=== PATIENT | female | born 1965 | race Caucasian/White ===

== ENCOUNTER → 2017-02-23 | Outpatient (CLI) | payer BC ==
[2015-08-27 17:39] VITALS: BP 105/65
[~2017-02-23] MED LIST: ALPR0.254 PO; CITA10TA8 PO; CYCL10TA2 PO; HYDR-2165 PO; HYDR-2666 PO; LACT10SO26 PO; OMEP40CA2 PO; OXYC-323 PO
--- NOTE | 2017-02-23 11:31 | KCIC ---
MRI brain without contrast Indication: Chronic migraine headaches. Multiplanar multi sequence imaging of the brain was performed without contrast. No prior studies are available for comparison. The ventricles and sulci are within normal limits. No sulcal effacement or midline shift is identified. The normal expected flow voids within the carotid siphons are seen. There is no diffusion restriction identified. Occasional subcortical T2 signal is seen, nonspecific but likely on the basis of chronic microvascular ischemia. No acute intra-axial or extra-axial hemorrhage is detected. The corpus callosum is unremarkable. The sella and parasellar structures are unremarkable. Impression: Minimal subcortical white matter signal abnormality is noted, likely on the basis of chronic microvascular ischemia. The study is otherwise unremarkable. No acute feature is detected. Electronically signed by: Mike Adam MD (Feb 23, 2017 11:29:17)
--- NOTE | 2017-02-23 11:33 | KCIC ---
Cervical spine, three views Indication: Neck pain. Time of exam 11:08 a.m. There is straightening of the normal cervical lordotic curvature. Minimal anterolisthesis of C4 on C5 is noted. There is degenerative disc disease at the C5-6 and C6-7 levels, with disc space narrowing and marginal osteophyte formation. The prevertebral tissues are normal. The odontoid is intact. No fractures are seen. Impression: Cervical spondylosis. No acute bony abnormality is detected. Electronically signed by: Mike Adam MD (Feb 23, 2017 11:31:27)
== END | disposition home or self-care (01) ==
LOC: KCIC MRI 10:10
PROVIDERS: ATTEND Psychiatry & Neurology Neurology with Special Qualifications in Child Neurology
DX: G43.909 Migraine, unspecified, not intractable, without status migrainosus (principal); M54.2 Cervicalgia
CPT/HCPCS: 70551; 72040